=== PATIENT | female | born 1990 | race Two or more races ===

== ENCOUNTER 2024-03-05 07:37 | Emergency (ER) | payer MEDICAID ==
[~2024-03-05] VITALS: Ht 152.4 cm; Wt 69.9 kg
[2024-03-05 08:41] LABS: Urine Bacteria None Seen /hpf (None Seen)
[2024-03-05 08:53] VITALS: PULSE 77; RESP 16; O2SAT 99
[2024-03-05 09:00] LABS: Urine Blood Negative /uL (Negative); Urine Clarity Clear (Clear); Urine Color Light-Yellow (Yellow); Urine Protein, UAD Negative (Negative); Urine Specific Gravity 1.018 (1.001-1.035); Urine Urobilinogen Normal (Negative); Urine WBC 1 /hpf (0 - 5)
[2024-03-05 09:12] LABS: Basophils # (auto) 0 10 ^3/uL (0-0.2); Basophils % (auto) 0.2 % (0.0-2.0); Eosinophils # (auto) 0.1 10 ^3/uL (0-0.8); Eosinophils % (auto) 0.7 % (0.0-7.0); Hematocrit 40.8 % (36.0-46.0); Lymphocytes # (auto) 1.5 10 ^3/uL (0.4-5.4); Lymphocytes % (auto) 14.2 % (10.0-50.0); Mean Corpuscular Hgb Conc. 34.3 g/dL (32.0-36.0); Mean Corpuscular Volume 87.4 fL (80.0-100.0); Monocytes # (auto) 0.9 10 ^3/uL (0-1.3); Monocytes % (auto) 8.7 % (0.0-12.0); Neutrophils % (auto) 76.2 % (37.0-80.0); Red Blood Cells 4.66 10^6/uL (4.0-5.20); Red Cell Distribution Width 15.4 % (11.8-14.3); White Blood Cell 10.5 10^3/uL (4.4-10.8)
[2024-03-05 09:24] LABS: Amphetamine Screen, Urine Neg (NEGATIVE)
[2024-03-05 09:25] LABS: Barbiturate Scree,Urine Neg (NEGATIVE); Benzodiazephine Screen, Urine Neg (NEGATIVE); Cannabinoid Screen, Urine Pos (NEGATIVE); Cocaine Screen, Urine Neg (NEGATIVE); Opiate Scree,Urine Neg (NEGATIVE); Phencyclidine Screen, Urine Neg (NEGATIVE)
[2024-03-05 09:27] LABS: Alanine Aminotransferase 25 U/L (7-40); Albumin 4.4 g/dL (3.2-4.8); Alkaline Phosphatase 76 U/L (46-116); Anion Gap 5 (5-15); Aspartate Aminotransferase 30 U/L (13-40); BUN/Creatinine Ratio 6.4 (10.0-20.0); Bilirubin, Total 0.4 mg/dL (0.2-1.0); Blood Urea Nitrogen 6 mg/dL (9-23); Calcium 9.5 mg/dL (8.5-10.1); Carbon Dioxide 20 mmol/L (20-30); Chloride 111 mmol/L (98-107); Glucose 90 mg/dL (74-106); Magnesium 2.3 mg/dL (1.6-2.6); Sodium 136 mmol/L (136-145); Total Protein 7.4 g/dL (5.7-8.2)
[2024-03-05] MEDS: LORazepam 2MG/ML-1ML VIAL IV ONE (09:30)
[2024-03-05] MEDS: SODIUM CHLORIDE 0.9% 1,000 ML IV ONE (09:33)
[2024-03-05] MEDS: PHENYTOIN IV DILANTIN 1,000 MG in SODIUM CHL 0.9% 250 ML IV ONE (09:33)
[2024-03-05 10:25] VITALS: BP 110/55; PULSE 76; RESP 10; TEMP 98.2; O2SAT 99
== END 2024-03-05 10:32 | disposition left against medical advice (07) ==
LOC: ER 07:37
DX: G40.909 Epilepsy, unspecified, not intractable, without status epilepticus (principal); F15.90 Other stimulant use, unspecified, uncomplicated; Z79.899 Other long term (current) drug therapy
CPT/HCPCS: 36415; 71046; 80053; 80307; 81001; 83735; 85025; 96374; 99284; J1165; J2060; J7050